=== PATIENT | female | born 1955 | race Caucasian/White ===

== ENCOUNTER 2017-02-12 20:53 | Inpatient (IN) | payer OTHER, MEDICARE ==
[~2017-02-12] VITALS: Ht 170.2 cm; Wt 58.0 kg
[~2017-02-12 20:53] MED LIST: ESTR.625 PO; ZOCO40TA PO
[2017-02-12 20:57] VITALS: BP 163/89; PULSE 98; RESP 16; TEMP 98.3; O2SAT 97
[2017-02-12 21:12] VITALS: BP_SYST 139; BP_SYST 142; BP_DIAS 76; BP_DIAS 80; PULSE 88; RESP 18; O2SAT 96
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
[2017-02-12] MEDS ORDERED: ASPIRIN 81 MG CHEW TAB PO ONE (21:15)
[2017-02-12] MEDS ORDERED: ZOCO40TA PO (21:15)
[2017-02-12] MEDS ORDERED: ESTR1TAB PO (21:15)
[2017-02-12] MEDS ORDERED: IBUP800T23 PO (21:15)
[2017-02-12] MEDS ORDERED: SODIUM CHLORIDE 0.9% FLUSH 10 ML FLUSH IVF PRN (21:15)
[2017-02-12] MEDS: NITROGLYCERIN 0.4 MG SL 25 TABS/BTL SL SCH ×5 (21:16→22:57)
--- NOTE | 2017-02-12 21:56 | RADRPT ---
EXAM DATE/TIME: 02/12/2017 21:34 [facility] COMPARISON: No previous studies available for comparison. INDICATIONS : Chest pain. MEDICAL HISTORY : Chronic obstructive pulmonary disease. SURGICAL HISTORY : None. ENCOUNTER: Initial ACUITY: 1 day PAIN SCORE: 7/10 LOCATION: middle chest. FINDINGS: A single view of the chest demonstrates the lungs to be symmetrically aerated without evidence of mas s, infiltrate or effusion. The cardiomediastinal contours are unremarkable. Osseous structures are intact. CONCLUSION: No acute disease. Benoit Cason MD on February 12, 2017 at 21:54 Board Certified Radiologist. This report was verified electronically.
[2017-02-12 22:01] VITALS: BP 125/72; PULSE 73; RESP 20; O2SAT 97
[2017-02-12 22:13] LABS: BASOPHIL % 0.6 % (0.0-2.0); EOSINOPHIL % 0.4 % (0.0-4.0); HEMATOCRIT 41.5 % (35.0-46.0); HEMO FLAGS DIFF FINAL; LYMPH % 24.1 % (9.0-44.0); LYMPHOCYTE # 1.4 TH/MM3 (1.0-4.8); MEAN CORPUSCULAR HEMOGLOBIN 32.1 PG (27.0-34.0); MEAN CORPUSCULAR HGB CONC 35.3 % (32.0-36.0); MONO % 5.1 % (0.0-8.0); NEUT % 69.8 % (16.0-70.0); PLATELET COUNT 207 TH/MM3 (150-450); RED BLOOD COUNT 4.56 MIL/MM3 (4.00-5.30); RED CELL DISTRIBUTION WIDTH 12.8 % (11.6-17.2); WHITE BLOOD COUNT 5.7 TH/MM3 (4.0-11.0)
[2017-02-12 22:31] LABS: APTT (PATIENT) 25.1 SEC (24.3-30.1); INTERNATIONAL NORMALIZED RATIO 0.9 RATIO; PROTHROMBIN TIME - PATIENT 9.8 SEC (9.8-11.6)
[2017-02-12 22:35] LABS: ANION GAP 8 MEQ/L (5-15); BICARBONATE 23.3 MEQ/L (21.0-32.0); BLOOD UREA NITROGEN 21 MG/DL (7-18); CHLORIDE 108 MEQ/L (98-107); CREATINE KINASE 106 U/L (26-192); GLOMERULAR FILTRATION RATE 49 ML/MIN (>89); MAGNESIUM 1.8 MG/DL (1.5-2.5); SODIUM (NA) 139 MEQ/L (136-145)
[2017-02-12] MEDS ORDERED: HEPARIN SODIUM - IV 10,000 UNITS/10 ML VIAL IV ONE (22:45)
[2017-02-12] MEDS ORDERED: METOPROLOL SUCCINATE 25 MG EXTENDED RELEASE TAB PO ONE (22:45)
[2017-02-12] MEDS ORDERED: ATORVASTATIN 80 MG TAB PO ONE (22:45)
[2017-02-12] MEDS ORDERED: CLOPIDOGREL 300 MG TAB PO ONE (22:45)
[2017-02-12] MEDS ORDERED: NITROGLYCERIN 2% OINT 1 GM PACKET TOP ONE (22:45)
[2017-02-12] MEDS ORDERED: HEPARIN-D5W INJ 250 ML IV SCH (22:45)
[2017-02-12 22:48] LABS: CKMB 2.2 NG/ML (0.5-3.6)
[2017-02-12 22:52] VITALS: BP 126/67; PULSE 66; RESP 20; O2SAT 98
[2017-02-12 23:29] LABS: HEMATOCRIT 41.1 % (35.0-46.0); MEAN CELL VOLUME 91.9 FL (80.0-100.0); MEAN CORPUSCULAR HEMOGLOBIN 31.7 PG (27.0-34.0); MEAN CORPUSCULAR HGB CONC 34.5 % (32.0-36.0); PLATELET COUNT 208 TH/MM3 (150-450); RED BLOOD COUNT 4.47 MIL/MM3 (4.00-5.30); REVIEW FLAG FINAL; WHITE BLOOD COUNT 8.1 TH/MM3 (4.0-11.0)
[2017-02-12 23:39] LABS: INTERNATIONAL NORMALIZED RATIO 0.9 RATIO; PROTHROMBIN TIME - PATIENT 9.9 SEC (9.8-11.6)
--- NOTE | 2017-02-12 23:42 | PD ---
Physical Exam Date Seen by Provider: Feb 12, 2017 Time Seen by Provider: 22:30 Narrative This patient presents with chest pain which started after mowing the lawn. Chest pain was relieved by nitroglycerin. Data Data Last Documented VS Vital Signs Date Time Temp Pulse Resp B/P Pulse Ox O2 Delivery O2 Flow Rate FiO2 02/12/17 22:52 66 20 126/67 98 Room Air 02/12/17 20:57 98.3 Orders Electrocardiogram (02/12/17 21:09) Basic Metabolic Panel (Bmp) (02/12/17 21:09) Ckmb (Isoenzyme) Profile (02/12/17 21:09) Complete Blood Count With Diff (02/12/17 21:) Magnesium (Mg) (02/12/17 21:09) Prothrombin Time / Inr (Pt) (02/12/17 21:09) Act Partial Throm Time (Ptt) (02/12/17 21:09) Troponin I (02/12/17 21:09) Chest, Single Ap (02/12/17 21:09) Ecg Monitoring (02/12/17 21:09) Bilateral Bp Monitoring (02/12/17 21:09) Iv Access Insert/Monitor (02/12/17 21:09) Oximetry (02/12/17 21:09) Oxygen Administration (02/12/17 21:09) Aspirin Chew (Aspirin Chew) (02/12/17 21:15) Sodium Chloride 0.9% Flush (Ns Flush) (02/12/17 21:15) Nitroglycerin Sl (Nitrostat Sl) (02/12/17 21:15) CKMB (02/12/17 21:15) CKMB% (02/12/17 21:15) Clopidogrel (Plavix) (02/12/17 22:45) Atorvastatin (Lipitor) (02/12/17 22:45) Heparin Infusion HERMAN.Q1H (02/12/17 22:44) Heparin Inj (Heparin Inj) (02/12/17 22:45) Heparin Inj (Heparin Inj) (02/13/17 04:45) Heparin Inj (Heparin Inj) (02/13/17 04:45) Heparin-D5w Inj (Heparin-D5w Inj) (02/12/17 22:45) Act Partial Throm Time (Ptt) (02/12/17 22:44) Prothrombin Time / Inr (Pt) (02/12/17 22:44) Cbc No Diff, Includes Plts (02/12/17 22:44) Cbc No Diff, Includes Plts (02/15/17 06:00) Act Partial Throm Time (Ptt) (02/13/17 05:44) Occult Blood (Hemoccult) Stool (02/12/17 22:44) Metoprolol Succinate Er (Toprol Xl) (02/12/17 22:45) Nitroglycerin 2% Oint (Nitroglycerin 2% (02/12/17 22:45) Consult Cardiology (02/12/17 ) (Hub Use Only)Inp Phy Cons/Ref (02/12/17 ) Morphine Inj (Morphine Inj) (02/12/17 23:45) Electrocardiogram (02/12/17 ) Admit Order (Ed Use Only) (02/12/17 23:56) Labs Laboratory Tests Test 02/12/17 02/12/17 21:15 23:10 White Blood Count 5.7 TH/MM3 8.1 TH/MM3 Red Blood Count 4.56 MIL/MM3 4.47 MIL/MM3 Hemoglobin 14.7 GM/DL 14.2 GM/DL Hematocrit 41.5 % 41.1 % Mean Corpuscular Volume 91.0 FL 91.9 FL Mean Corpuscular Hemoglobin 32.1 PG 31.7 PG Mean Corpuscular Hemoglobin 35.3 % 34.5 % Concent Red Cell Distribution Width 12.8 % 13.0 % Platelet Count 207 TH/MM3 208 TH/MM3 Mean Platelet Volume 8.0 FL 7.5 FL Neutrophils (%) (Auto) 69.8 % Lymphocytes (%) (Auto) 24.1 % Monocytes (%) (Auto) 5.1 % Eosinophils (%) (Auto) 0.4 % Basophils (%) (Auto) 0.6 % Neutrophils # (Auto) 4.0 TH/MM3 Lymphocytes # (Auto) 1.4 TH/MM3 Monocytes # (Auto) 0.3 TH/MM3 Eosinophils # (Auto) 0.0 TH/MM3 Basophils # (Auto) 0.0 TH/MM3 CBC Comment DIFF FINAL Differential Comment Prothrombin Time 9.8 SEC 9.9 SEC Prothromb Time International 0.9 RATIO 0.9 RATIO Ratio Activated Partial 25.1 SEC 24.0 SEC Thromboplast Time Sodium Level 139 MEQ/L Potassium Level 4.0 MEQ/L Chloride Level 108 MEQ/L Carbon Dioxide Level 23.3 MEQ/L Anion Gap 8 MEQ/L Blood Urea Nitrogen 21 MG/DL Creatinine 1.12 MG/DL Estimat Glomerular Filtration 49 ML/MIN Rate Random Glucose 144 MG/DL Calcium Level 9.7 MG/DL Magnesium Level 1.8 MG/DL Total Creatine Kinase 106 U/L Creatine Kinase MB 2.2 NG/ML Troponin I 0.50 NG/ML [facility] Supervised Visit with MAXI: Yes Interpretation(s) EKG #3 continues to show diffuse nonspecific ST segment elevation. Differential Diagnosis Differential diagnosis of chest pain includes but is not limited to musculoskeletal pain, pulmonary embolism, acute coronary syndrome, pneumonia, pleurisy Narrative Course I, Dr. Rios, have reviewed the advance practice practitioner's documentation and am in agreement, met with the patient face to face, made the diagnosis, and the medical decision making was done by me. *My assessment and Findings: Patient presents with chest pain which was relieved by nitroglycerin. The chest pain started after physical exertion. The patient's risk factors for coronary artery disease include smoking, hyperlipidemia and a positive family history. Her initial troponin is 0.5. Her EKG shows diffuse minimal ST segment elevation. 11:40 PM The patient had been pain-free following her initial nitroglycerin. Nitropaste was applied after Dr. Sharp was consulted. However, she is now complaining with chest pain again. I have ordered morphine. I have asked for a repeat EKG. Critical Care Narrative Aggregate critical care time was 30 minutes. Time to perform other separately billable procedures was not included in the critical care time. My time did not include minutes spent treating any other patients simultaneously or on activities that did not directly contribute to the patient's treatment. The services I provided to this patient were to treat and/or prevent clinically significant deterioration due to NSTEMI I provided critical care services requiring my management, as noted below: Chart data review, documentation time, medication orders and management, vital sign assessments/reviewing monitor data, ordering and reviewing lab tests, ordering and interpreting/reviewing x-rays and diagnostic studies, care of the patient and discussion of the patient with the admitting physicians Physician Communication Physician Communication The patient was discussed with Dr. Sharp who requested a loading dose of Plavix, heparin, beta anatoliy, Lipitor, nitroglycerin and admission to the [facility]. has been paged admission. Diagnosis Primary Impression: NSTEMI (non-ST elevated myocardial infarction) Admitting Information Admitting Physician Requests: Admit Condition: Stable Teresa Rios MD Feb 12, 2017 23:42
[2017-02-12] MEDS ORDERED: MORPHINE SULFATE 8 MG/ML INJ IV PUSH PRN (23:45)
[2017-02-13] VITALS (26 sets, daily range): BP systolic 103–139; BP diastolic 64–76; PULSE 51–94; RESP 14–18; TEMP 97.7–98.3; O2SAT 96–98
[2017-02-13] MEDS ORDERED: SODIUM CHLORIDE 0.9% FLUSH 10 ML FLUSH IV FLUSH PRN (00:15)
[2017-02-13] MEDS ORDERED: NALOXONE HCL 0.4 MG/ML AMP IV PRN (00:15)
[2017-02-13] MEDS ORDERED: NITROGLYCERIN 0.4 MG SL 25 TABS/BTL SL PRN (00:15)
[2017-02-13] MEDS ORDERED: MORPHINE SULFATE 8 MG/ML INJ IV PUSH ONE (00:45)
[2017-02-13] MEDS ORDERED: HEPARIN SODIUM - IV 10,000 UNITS/10 ML VIAL IV PRN ×2 (04:45)
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
[2017-02-13] MEDS: SODIUM CHLOR 0.9% 1000 ML INJ 1,000 ML IV SCH ×2 (05:52→19:58)
[2017-02-13 06:20] LABS: APTT (PATIENT) 68.3 SEC (24.3-30.1)
[2017-02-13] MEDS: ACETAMINOPHEN 325 MG TAB PO PRN ×2 (08:17→21:27)
[2017-02-13] MEDS ORDERED: IOHEXOL 350 MG/ML 100 ML BTL (for Cath Lab) OTHER ONE (08:27)
[2017-02-13] MEDS: SODIUM CHLORIDE 0.9% FLUSH 10 ML FLUSH IV FLUSH SCH ×2 (09:00→21:00)
[2017-02-13 11:35] LABS: APTT (PATIENT) 67.6 SEC (24.3-30.1)
--- NOTE | 2017-02-13 11:46 | HHI.PR ---
Subjective Remarks Had some chest pain early this morning. No shortness of breath. Consent to going to cardiac catheterization today. Objective Vitals Vital Signs Date Time Temp Pulse Resp B/P Pulse Ox O2 Delivery O2 Flow Rate FiO2 02/13/17 11:00 98.0 62 16 103/64 97 02/13/17 10:32 63 02/13/17 09:00 55 02/13/17 08:00 58 02/13/17 07:00 61 02/13/17 07:00 98.0 58 14 139/70 97 02/13/17 06:00 59 02/13/17 05:48 97.8 61 14 107/66 98 02/13/17 05:00 60 02/13/17 04:00 59 02/13/17 03:20 60 02/13/17 02:19 62 02/13/17 01:43 97.7 94 16 123/70 97 02/13/17 01:23 16 02/13/17 00:04 18 02/12/17 22:52 66 20 126/67 98 Room Air 02/12/17 22:01 73 20 125/72 97 Room Air 02/12/17 21:12 139/80 142/76 02/12/17 21:12 18 96 Room Air 02/12/17 21:12 88 02/12/17 21:12 96 Room Air 02/12/17 21:10 80 16 98 Room Air 02/12/17 20:57 98.3 98 16 163/89 97 Room Air I/O 02/12/17 02/12/17 02/12/17 02/13/17 02/13/17 02/13/17 07:00 15:00 23:00 07:00 15:00 23:00 Intake Total 48 ml Balance 48 ml Intake Oral 0 ml IV Total 48 ml # Voids 2 # Bowel Movements 0 Result Diagram: 02/12/17 2310 02/12/178 Other Results Item Value Date Time Troponin I 2.02 NG/ML *H # 02/13/17 0427 Total Creatine Kinase 115 U/L 02/13/17 042 Objective Remarks GENERAL: This is a well-nourished, well-developed patient, in no apparent distress. CARDIOVASCULAR: Regular rate and rhythm RESPIRATORY: Clear to auscultation. Breath sounds equal bilaterally. No wheezes , rales, or rhonchi. GASTROINTESTINAL: Abdomen soft, non-tender, nondistended. Normal active bowel sounds MUSCULOSKELETAL: Extremities without clubbing, cyanosis, or edema. NEURO: Alert & Oriented x4 to person, place, time, situation. Moves all ext x4 Procedures 02/13 cardiac catheterization A/P Problem List: (1) NSTEMI (non-ST elevated myocardial infarction) ICD Code: I21.4 Status: Acute Assessment and Plan NSTEMIsecond troponin increased from 0.5 to over [address]. Cardiology consultation [address] and patient scheduled for cardiac catheterization today. Continue with heparin infusioncontinue with aspirin, beta blockers tolerated, statin Nonspecific abdomen and chest pain in a patient with prior IVC filter prong migration requiring removal - Patient has 7 additional prongs from IVC filter remaining I will wait further evaluation with CT abdomen and pelvis and CT chest with IV contrast. Congenital unilateral kidney - BUN 21, creatinine 1.12, estimated GFR 49 - worsened when compared to 2007 labs but have nothing more recent than these to compare to IV fluid hydration and monitor closely after catheterization and IV contrast, avoid nephrotoxins. DVT prophylaxisheparin infusion Hayley Foster MD Feb 13, 2017 11:46
--- NOTE | 2017-02-13 12:44 | EKG ---
Date Performed: 02/13/2017 Time Performed: 04:21:18 PTAGE: 62 years EKG: Sinus bradycardia Inferior ST elevation, CONSIDER ACUTE INFARCT Abnormal ECG PREVIOUS TRACING : 02/12/2017 23.47 DOCTOR: Christiano Scott Interpretating Date/Time 02/13/2017 12:42:31
--- NOTE | 2017-02-13 12:46 | EKG ---
Date Performed: 02/12/2017 Time Performed: 23:47:22 PTAGE: 62 years EKG: SINUS BRADYCARDIA EARLY REPOLARIZATION BORDERLINE ECG PREVIOUS TRACING : 02/12/2017 21.16 DOCTOR: Christiano Scott Interpretating Date/Time 02/13/2017 12:44:26
--- NOTE | 2017-02-13 12:50 | EKG ---
Date Performed: 02/12/2017 Time Performed: 21:49:51 PTAGE: 62 years EKG: Sinus rhythm NORMAL ECG NO PREVIOUS TRACING DOCTOR: Christiano Scott Interpretating Date/Time 02/13/2017 12:46:58
--- NOTE | 2017-02-13 12:50 | EKG ---
Date Performed: 02/12/2017 Time Performed: 21:16:33 PTAGE: 62 years EKG: Sinus rhythm POSSIBLE LEFT ATRIAL ENLARGEMENT BORDERLINE ECG PREVIOUS TRACING : 12/29/2006 00.25 DOCTOR: Christiano Scott Interpretating Date/Time 02/13/2017 12:47:04
[2017-02-13 13:00] LABS: ALT (GPT) 18 U/L (10-53); AST (GOT) 22 U/L (15-37)
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
--- NOTE | 2017-02-13 14:58 | EKG ---
Date Performed: 02/13/2017 Time Performed: 08:23:36 PTAGE: 62 years EKG: Sinus bradycardia. Normal ECG except for rate PREVIOUS TRACING : 02/13/2017 04.21 No significant change. DOCTOR: Brian Martell Interpretating Date/Time 02/13/2017 14:56:49
[2017-02-13] MEDS ORDERED: HEPARIN-NS/PF INJ 500 ML ONE (17:23)
[2017-02-13] MEDS ORDERED: MIDAZOLAM HCL 2 MG/2 ML VIAL ONE (17:23)
[2017-02-13] MEDS ORDERED: HEPARIN SODIUM - IV 10,000 UNITS/10 ML VIAL ONE (17:24)
[2017-02-13 18:13] LABS: HEMOGLOBIN A1a 1.1 %; HEMOGLOBIN Ao 85.3 %; HEMOGLOBIN F 0.8 %; HEMOGLOBIN P3 3.7 %
--- NOTE | 2017-02-13 18:21 | CATHPROC ---
[email or web address] HIS Report Study Information Study Number Admission Scheduled Start Study Start [id number] Feb 12 2017 11:58PM 02/13/2017 Feb 13 2017 5:17PM [place] Service Cardiac Catheterization Admit Source Facility Department Emergency department [facility] - Creative Services Producer Physician and Clinical Staff Initial Selvin Mckeon Feeder Operator Automatic Haydee Kenny,IFEOMA Recorder Zina Perez,(R) (BS) Scrub Jose Eduardo Horton RCIS(BS) Procedures Performed Procedure Location (Site) Vessel Name Angiogram LV LV Ventricle Coronary Angiograms RCA Right Coronary L Heart Cath Equipment Time Supervisor Slate Splitting Description Size Mfg Part Number Used/Scraped TRANSDUCER, TRUWAVE [id number] 17:19 ROJAS BRAR * Used W/STOCKCOCK *[id number] *[id number] *[id number] *[id number] 17:19 [employer] PACK, CCL CUSTOM * Used *[id number] 17:19 [employer] PACER PEN, SKIN DUAL W/ RULER * Used *[id number] 17:19 [employer] WIRE, 3MMJ .035 180CM 180CM Used *[id number] PROBE COVER, STERILE [id number] 17:19 [employer] MEDICAL * Used ULTRASOUND W/ GEL *[id number] 17:19 NAMIC MANIFOLD, 4 PORT * Used *[id number] 17:19 NAMIC TUBING, HIGH PRESSURE 48" 48" Used *[id number] 17:19 [employer] OMNIPAQUE, 350 MG, 150ML 150ML [id number] Used [id number] 17:19 [employer] BLANKET,WARM AIR CCL * Used *[id number] 17:19 TERUMO MEDICAL SHEATH, FR5 TERUMO (10CM) FR 5 Used *[id number] History: Current Medications Medication Dosage/Unit Route Frequency Last Date/Time Taken ASA PLAVIX HEPARIN Beta Palomo History: Allergies Allergy Reaction No Known Allergies History: Risk Factors Family History of Hypertension Dyslipidemia Previous [place] Previous Heart Failure Premature CAD No Yes No No No Prior Valve Prior PCI Prior CABG Surgery No No No Cerebrovascular Peripheral Artery Chronic Lung On Dialysis Disease Disease Disease No No No No History: Symptoms/Diagnosis Selection Items Chest pain History: Stress Tests Stress or Imaging Studies Performed No History: Other Current Smoker Method Packs a Day Years Used Pack Years No Cigarettes 1 40 40 Labs Hgb (g/dl) RBC (MIL/MM3) WBC (l/cumm) Platelets (thousands) 11.60-17.00 4.00-5.90 4.00-11.00 150.00-450.00 14.2 4.4 8.1 208 Glucose (mg/dl) BUN (mg/dl) Creatinine (mg/dl) BUN:Creatinine (1:x) 74.00-106.00 7.00-18.00 0.50-1.30 10.00-20.00 144 21 1.1 19.1 Na (meq/l) 136.00-145.00 139 INR (PTT:PT) 0.90-1.10 0.9 Troponin I (ng/ml) CPK-MB (ng/ML) 0.02-0.05 0.50-3.60 1.46 2.2 Medication Medication Total Dose (Bolus/Oral) Medication Total Dosage/Unit 1% XYLOCAINE 20 mL FENTANYL 100 mcg VERSED 4 mg Medications (Bolus/Oral) Medication Time Given Dosage/Unit Administered By Reason VERSED 02/13/2017 5:52:27 PM 2 mg MeseretcheAnalisaHaydee 2 mg VERSED given in lab by Haydee Kenny RN in Right Forearm via Peripheral IV. FENTANYL 02/13/2017 5:53:47 PM 50 mcg Aleksandra Kennyt 50 mcg FENTANYL given in lab by Haydee Kenny RN in Right Forearm via Peripheral IV. 1% XYLOCAINE 02/13/2017 5:57:57 PM 20 mL Selvin Sharp 20 mL 1% XYLOCAINE given in lab by Selvin Sharp in Right Groin via Subcutaneous. VERSED 02/13/2017 5:58:35 PM 2 mg MeseretcheAnalisaHaydee 2 mg VERSED given in lab by Haydee Kenny RN in Right Forearm via Peripheral IV. FENTANYL 02/13/2017 5:58:40 PM 50 mcg Analisa Kennyaret 50 mcg FENTANYL given in lab by Haydee Kenny RN in Right Forearm via Peripheral IV. Medication (Drip) Medication Time Given Dosage/Unit Concentration/Unit Diluent (ml) Solution HEPARIN DRIP STOPPED 02/13/2017 5:25:11 PM 0 units/hr 0 0 units/hr HEPARIN DRIP STOPPED given by Haydee Kenny RN in Right Forearm via Peripheral IV. Pum p/Drip Flow = 0 ml/hr using [Solution Name]. IV Solutions 02/13/2017 5:28:31 PM 0 mL (IV) 1000 NaCl .9 Patient arrived on IV Solutions in Right Forearm via Peripheral IV. Pump/Drip Flow = 20 ml/hr using N aCl .9. Initial Case Assessment Cardiovascular HR Rhythm NIBP Chest Pain 66 reg 146/84 0 Edema Present Skin color Skin None Normal Warm Dry Circulatory - Right Pulses Dorsalis Pedis Femoral 2 2 Scale (0,1,2,3,4,d) Circulatory - Left Pulses Dorsalis Pedis Femoral 2 2 Scale (0,1,2,3,4,d) Circulatory - Lower Extremities Color Lower Right Color Lower Left Normal Normal Neurological State Oriented to time-place- Alert Moves all extremities person Respiration - General Respiration Rate SpO2 (%) (B/min) 18 99 Chronological Log Time Study Chronological Log 0 units/hr HEPARIN DRIP STOPPED given by aHydee Kenny RN in Right Forearm via Peripheral I V. Pump/Drip Flow 17:25:11 = 0 ml/hr using [Solution Name]. 17:28:11 Patient arrived via Bed. 17:28:13 Patient Name, D.O.B, / Armband Verified By R.N. 17:28:14 Consent signed by the physician and the patient and verified by the Creative Services Producer staff. 17:28:16 Pre-op and post- op instructions given; patient acknowledges understanding of instructions. 17:28:17 Verbal Stimulation=2 Physical Stimulation=2 Airway=2 Respiration=2 TOTAL=8. (0=absent, 1=li mited, 2=present) 17:28:20 Presedation assessment performed by Creative Services Producer RN. 17:28:23 Patient has been NPO for More than 6Hrs. 17:28:26 Skin Breakdown none per pt 17:28:27 Patient Warmer Placed on the Table. 17:28:29 Chava Prominences Protected 17:28:30 A # 20 IV was noted in the Forearm (right). Grade = 0 17:28:31 Patient arrived on IV Solutions in Right Forearm via Peripheral IV. Pump/Drip Flow = 20 ml/ hr using NaCl .9. 17:28:32 History and physical on the chart or being dictated. Assessment: Initial Case, HR=66 BPM, Rhythm=reg, QDXF=620/84 mmhg, Chest Pain=0, Edema=None, Co cruz=Normal, Skin = Warm, Dry Right Pulses: Robert Ped=2, Femoral=2 Left Pulses: Robert Ped=2, Femoral=2 17:28:34 Lower Right Extremities: Color=Normal Lower Left Extremities: Color=Normal Neurological: State=Alert, Ox3, SERNA Respiration: Resp=18 B/min, SpO2=99 % Vitals capture started with the following parameters, Patient=Adult, Interval=5 min, Initial Pr rzlzzc=591 mmHg, 17:31:59 Deflation Rate=5 mmHg, Cuff placed on Right Arm 17:33:00 HR=59 bpm, YJRC=161/84 mmhg, SpO2=98.0 %, Resp=14 B/min, Pain=0, Maribel=10, Beth=2 17:33:45 Bilateral groins prepped with 2% chlorhexidine, and with a 3 min. waiting time. 17:35:12 Reference ECG taken 17:37:35 HR=59 bpm, OTKV=780/82 mmhg, SpO2=98.0 %, Resp=19 B/min, Pain=0, Maribel=10, Beth=2 17:38:25 MD paged 17:41:58 Pressure channel 1 zeroed. 17:42:34 HR=54 bpm, SIQN=494/77 mmhg, SpO2=99.0 %, Resp=15 B/min, Pain=0, Maribel=10, Beth=2 17:47:33 HR=54 bpm, PHED=121/76 mmhg, SpO2=98.0 %, Resp=14 B/min, Pain=0, Maribel=10, Beth=2 17:51:06 MD arrived. 17:52:27 2 mg VERSED given in lab by Haydee Kenny, IFEOMA in Right Forearm via Peripheral IV. 17:52:34 HR=56 bpm, SJSY=875/79 mmhg, SpO2=98.0 %, Resp=15 B/min, Pain=0, Maribel=10, Beth=2 17:53:47 50 mcg FENTANYL given in lab by Haydee Kenny, RN in Right Forearm via Peripheral IV. Time Out. Correct patient, correct procedure,correct physician, power injector loaded with cont rast with surgical team 17:57:05 present. Time Out Concurred by , individual staff in procedure 17:57:25 Case Start 17:57:37 HR=58 bpm, LNZC=790/69 mmhg, SpO2=98.0 %, Resp=10 B/min, Pain=0, Maribel=10, Beth=2 17:57:57 20 mL 1% XYLOCAINE given in lab by Selvin Sharp in Right Groin via Subcutaneous. 17:58:35 2 mg VERSED given in lab by Haydee Kenny, RN in Right Forearm via Peripheral IV. 17:58:40 50 mcg FENTANYL given in lab by Haydee Kenny, IFEOMA in Right Forearm via Peripheral IV. 17:59:13 Access site was Right Femoral Artery using ultrasound 17:59:28 A SHEATH, FR5 TERUMO (10CM) FR 5 was advanced into the Fem Art (right) using the Percutaneo us technique. 18:00:13 Activated Clotting Time Drawn A PIGTAIL ANG. INFINITI CATHETER FR 5 was advanced over a wire. OMNIPAQUE, 350 MG, 150ML 150ML was used 18:00:32 for injections. Recorded Pressure: LV, HR=56, Condition=Condition 1 18:01:27 (Left Ventricle) LV 114/9/15 18:02:13 The LV was injected at 10 cc/sec for a total of 30. OMNIPAQUE, 350 MG, 150ML 150ML used. 18:02:32 HR=55 bpm, TJWF=297/66 mmhg, SpO2=99.0 %, Resp=8 B/min, Pain=0, Maribel=10, Beth=2 18:03:17 ACT (Normal Range 90-180) = 168 Recorded Pressure: LV, Ao, HR=52, Condition=Condition 1 18:03:27 (Left Ventricle) LV 120/14/21, (Aorta) Ao 123/70/94 18:03:56 Catheter was removed A JL 4.0 INFINITI CATHETER FR 5 was advanced over a wire. OMNIPAQUE, 350 MG, 150ML 150ML was us ed for 18:04:18 injections. 18:05:24 The RCA was injected and visualized at various angles. OMNIPAQUE, 350 MG, 150ML 150ML used . Recorded Pressure: Ao, HR=61, Condition=Condition 1 18:05:29 (Aorta) Ao 115/62/84 18:07:33 HR=62 bpm, BMRD=767/69 mmhg, SpO2=99.0 %, Resp=13 B/min, Pain=0, Maribel=10, Beth=2 18:08:09 Catheter was removed A AR MOD INFINITI CATHETER FR 5 was advanced over a wire. OMNIPAQUE, 350 MG, 150ML 150ML was u sed for 18:09:04 injections. 18:09:49 The RCA was injected and visualized at various angles. OMNIPAQUE, 350 MG, 150ML 150ML use d. 18:10:58 Catheter was removed 18:11:11 Case End 18:12:36 HR=72 bpm, TJIL=046/67 mmhg, SmE5=165.0 %, Resp=14 B/min, Pain=0, Maribel=10, Beth=2 18:12:48 Catheter(s) removed without difficulty 18:13:49 Sterile dressing applied to site 18:14:06 No case complications noted. 18:14:32 Cine recording checked. 18:14:38 Bedside Report will be given. 18:14:42 A Left Heart Cath was performed. 18:17:33 HR=61 bpm, OUJP=186/74 mmhg, SpO2=99.0 %, Resp=10 B/min, Pain=0, Maribel=10, Beth=2 18:17:33 CIC called. Advised a-line needed. 18:19:23 Vitals capture stopped. 18:21:53 Patient moved to [facility] End Study - Contrast Media Used In Study Contrast Total Opened (mL) Total Used (mL) Total Wasted (mL) Omnipaque 100 100 0 End Study - Maximum Contrast Load Max Contrast Load (mL) 256.8 End Study - Radiation Exposure Fluoro Time (minutes) 1.3 End Study - Patient Disposition Complications Transferred To Interventional Outcome No Telemetry Bed No attempt made
[2017-02-13] MEDS ORDERED: SODIUM CHLOR 0.9% 1000 ML INJ 500 ML IV SCH (20:08)
[2017-02-13] MEDS: METOPROLOL TARTRATE 25 MG TAB PO SCH (20:51)
[2017-02-13 21:45] LABS: HDL CHOLESTEROL 54.6 MG/DL (40.0-60.0)
[2017-02-14] VITALS (18 sets, daily range): BP systolic 98–128; BP diastolic 55–77; PULSE 53–69; RESP 16–18; TEMP 98.1–98.3; O2SAT 95–97
[2017-02-14] MEDS ORDERED: EPINEPHrine HCL (1:10,000) 1 MG/10 ML SYRINGE ONE (00:22)
--- NOTE | 2017-02-14 01:18 | RADRPT ---
EXAM DATE/TIME: 02/14/2017 00:31 [facility] COMPARISON: No previous studies available for comparison. INDICATIONS : Diffuse abdominal pain. Pain is similar to time when an IVC filter broke. Evaluate for foreign body. ORAL CONTRAST: No oral contrast ingested. RADIATION DOSE: 6.52 CTDIvol (mGy) ; Combined studies - Thorax/Abdomen/Pelvis MEDICAL HISTORY : None SURGICAL HISTORY : Hysterectomy. Duodenum and vena cava repaired. ENCOUNTER: Initial ACUITY: 2 days PAIN SCALE: 5/10 LOCATION: All quadrants. TECHNIQUE: Volumetric scanning of the abdomen and pelvis was performed. Using automated exposure control and ad justment of the mA and/or kV according to patient size, radiation dose was kept as low as reasonably achievable to obtain optimal diagnostic quality images. DICOM format image data is available electro nically for review and comparison. FINDINGS: LOWER LUNGS: The visualized lower lungs are clear. LIVER: Homogeneous density without lesion. There is no dilation of the biliary tree. Contrast is seen in th e gallbladder. SPLEEN: Calcified granulomas in the spleen. PANCREAS: Within normal limits. KIDNEYS: Solitary left kidney. Contrast is seen within the renal collecting system and ureter. Left kidney wit hin normal limits. ADRENAL GLANDS: Within normal limits. VASCULAR: There is no aortic aneurysm. BOWEL/MESENTERY: No evidence of bowel dilatation. No free air or free fluid. Appendix not identified. ABDOMINAL WALL: Small fat-containing anterior abdominal wall hernia just left of midline measuring 1.8 cm. RETROPERITONEUM: IVC filter is in place. No other metallic foreign body identified. BLADDER: Contrast is seen in the bladder. REPRODUCTIVE: Status post hysterectomy. INGUINAL: There is no lymphadenopathy or hernia. MUSCULOSKELETAL: Left femoral internal fixation hardware partially visualized. CONCLUSION: 1. IVC filter is in place. The distal arms of the filter extend beyond the pool of the IVC but there is no evidence of hematoma. No evidence of filter displacement. The adjacent duodenum is within norm al limits. 2. No acute findings in the abdomen and pelvis. 3. Solitary left kidney. Fabian Juarez MD on February 14, 2017 at 1:07 Board Certified Radiologist. This report was verified electronically.
--- NOTE | 2017-02-14 01:21 | RADRPT ---
EXAM DATE/TIME: 02/14/2017 00:31 [facility] COMPARISON: No previous studies available for comparison. INDICATIONS : Chest pain. Pain is similar to time when an IVC filter broke. Evaluate for foreign body. RADIATION DOSE: 6.52 CTDIvol (mGy) ; Combined studies - Thorax/Abdomen/Pelvis MEDICAL HISTORY : None SURGICAL HISTORY : Hysterectomy. Vena cava repaired. ENCOUNTER: Initial ACUITY: 2 days PAIN SCALE: 5/10 LOCATION: Bilateral chest TECHNIQUE: Volumetric scanning of the chest was performed. Using automated exposure control and adjustment of t he mA and/or kV according to patient size, radiation dose was kept as low as reasonably achievable to obtain optimal diagnostic quality images. DICOM format image data is available electronically for r eview and comparison. Follow-up recommendations for incidentally detected pulmonary nodules are based at a minimum on nodul e size and patient risk factors according to Fleischner Society Guidelines. FINDINGS: LUNGS: Mild pulmonary emphysema bilaterally. Calcified granuloma in the right middle lobe. PLEURAE: There is no pleural thickening or pleural effusion. MEDIASTINUM: Calcified lymph nodes in the subcarinal and right hilar regions. No enlarged lymph nodes. Minimal cor onary artery calcification. AXILLAE: Within normal limits. No lymphadenopathy. MUSCULOSKELETAL: Within normal limits for patient age. MISCELLANEOUS: The visualized upper abdominal organs demonstrate no acute abnormality. CONCLUSION: 1. No metallic foreign body identified. 2. Old granulomatous disease. 3. Mild pulmonary emphysema. Fabian Juarez MD on February 14, 2017 at 1:17 Board Certified Radiologist. This report was verified electronically.
[2017-02-14] MEDS: SODIUM CHLOR 0.9% 1000 ML INJ 1,000 ML IV SCH (05:20)
[2017-02-14 06:03] LABS: APTT (PATIENT) 26.1 SEC (24.3-30.1)
[2017-02-14 06:22] LABS: HDL CHOLESTEROL 44.4 MG/DL (40.0-60.0)
[2017-02-14] MEDS: ACETAMINOPHEN 325 MG TAB PO PRN (07:35)
[2017-02-14] MEDS ORDERED: ASPIRIN 325 MG TAB PO SCH (09:00)
[2017-02-14] MEDS: SODIUM CHLORIDE 0.9% FLUSH 10 ML FLUSH IV FLUSH SCH (09:00)
[2017-02-14] MEDS ORDERED: ASPIRIN EC 81 MG TABEC PO SCH (09:00)
[2017-02-14] MEDS ORDERED: ATORVASTATIN 20 MG TAB PO SCH (09:00)
[2017-02-14] MEDS: METOPROLOL TARTRATE 25 MG TAB PO SCH (09:47)
--- NOTE | 2017-02-14 15:59 | HHI.DS ---
Discharge Summary Admission Date Feb 12, 2017 at 23:58 Discharge Date: Feb 14, 2017 Admitting Diagnosis NSTEMI (1) NSTEMI (non-ST elevated myocardial infarction) ICD Code: I21.4 Procedures 02/13 cardiac catheterization Brief History - From Admission Obtained from admitting physician's history and physical - 62 [place] presents with chest pressure radiating to her jaw and neck accompanied by shortness of breath after she finished mowing her "small" yard - symptoms severe. She denies nausea, vomiting, diarrhea, dysuria, or hematuria. She also has complaints of nonspecific abdominal and chest pains intermittently that are similar to the pains she had from IVC filter prong migration CBC/BMP: 02/12/17 2310 02/12/17 2115 Significant Findings Laboratory Tests Test 02/12/17 02/12/17 02/13/17 02/13/17 21:15 23:10 04:27 10:40 Chloride Level 108 MEQ/L (98-107) Blood Urea Nitrogen 21 MG/DL (7-18) Creatinine 1.12 MG/DL (0.50-1.00) Estimat Glomerular Filtration 49 ML/MIN (>89) Rate Random Glucose 144 MG/DL (74-106) Troponin I 0.50 NG/ML 2.02 NG/ML (0.02-0.05) (0.02-0.05) Activated Partial 24.0 SEC 68.3 SEC 67.6 SEC Thromboplast Time (24.3-30.1) (24.3-30.1) (24.3-30.1) Test 02/13/17 02/13/17 02/14/17 11:33 20:20 04:17 Troponin I 1.46 NG/ML (0.02-0.05) Triglycerides Level 250 MG/DL 273 MG/DL (42-150) (42-150) Imaging Last Impressions Chest CT 02/13/17 0000 Signed Impressions: Service Date/Time: Tuesday, February 14, 2017 00:31 - CONCLUSION: 1. No metallic foreign body identified. 2. Old granulomatous disease. 3. Mild pulmonary emphysema. Fabian R Juarez, MD Abdomen/Pelvis CT 02/13/17 0000 Signed Impressions: Service Date/Time: Tuesday, February 14, 2017 00:31 - CONCLUSION: 1. IVC filter is in place. The distal arms of the filter extend beyond the pool of the IVC but there is no evidence of hematoma. No evidence of filter displacement. The adjacent duodenum is within normal limits. 2. No acute findings in the abdomen and pelvis. 3. Solitary left kidney. Fabian Juarez MD Chest X-Ray 02/12/179 Signed Impressions: Service Date/Time: Sunday, February 12, 2017 21:34 - CONCLUSION: No acute disease. Benoit Cason MD PE at Discharge GENERAL: This is a well-nourished, well-developed patient, in no apparent distress. CARDIOVASCULAR: Regular rate and rhythm RESPIRATORY: Clear to auscultation. Breath sounds equal bilaterally. No wheezes , rales, or rhonchi. GASTROINTESTINAL: Abdomen soft, non-tender, nondistended. Normal active bowel sounds MUSCULOSKELETAL: Extremities without clubbing, cyanosis, or edema. NEURO: Alert & Oriented x4 to person, place, time, situation. Moves all ext x4 Pt update on day of discharge No further chest pain, want to go home. Hospital Course 62-year-old white female was admitted for chest pain elevated troponin I with presumed non-ST elevation myocardial infarction. She was seen by kelly machine operator Dr. Gan for perform a cardiac catheterization with findings of no significant coronary disease. Due to her history of previous IVC filter a CT of the chest along with CT of the abdomen pelvis was obtained which show no abnormality. IVC filter still in place. patient had no further chest pain or the hospital physician and at this time is ready to be discharged home with continued follow-up and further evaluation as outpatient. Pt Condition on Discharge: Good Discharge Disposition: Discharge Home Discharge Time: <= 30 minutes Discharge Instructions DIET: Follow Instructions for: Heart Healthy Diet Activities you can perform: Regular-No Restrictions Follow up Referrals: PCP Follow-up Continued Medications: Estradiol (Estradiol) 1 Mg Tab 1 MG PO DAILY Estrogen Supplements #30 Ref 0 TAB Ibuprofen (Ibuprofen) 800 Mg Tab 800 MG PO Q8H PRN Pain/Inflammation #60 Ref 0 TAB Simvastatin (Zocor) 40 Mg Tab 40 MG PO DAILY Cholesterol Management #30 Ref 0 TAB Kristin,Hayley MD Feb 14, 2017 15:59
--- NOTE | 2017-02-14 16:01 | PD.CARD.PN ---
Subjective Subjective Remarks No CP or SOB, feels better Objective Medications Current Medications Medications (Trade) Dose Ordered Sig/Huma Route Start Time Stop Time Status Last Admin (Heparin Inj) 5,000 units UNSCH PRN IV 02/13/17 04:45 Heparin Sodium (Porcine) 2500 units 2,500 units UNSCH PRN IV 02/13/17 04:45 (Heparin-D5W Inj) 250 ml @ 0 mls/hr TITRATE IV 02/12/17 22:45 02/12/17 23:12 (NS Flush) 2 ml UNSCH PRN IV FLUSH 02/13/17 00:15 (NS Flush) 2 ml BID IV FLUSH 02/13/17 09:00 02/14/17 09:00 (Narcan Inj) 0.4 mg UNSCH PRN IV 02/13/17 00:15 Nitroglycerin 0.4 mg 0.4 mg Q5M PRN SL 02/13/17 00:15 (NS 1000 ml Inj) 1,000 ml @ 84 mls/hr [id number] IV 02/13/17 05:30 02/13/17 19:58 (Tylenol) 650 mg Q4H PRN PO 02/13/17 06:15 02/14/17 07:35 (Lipitor) 20 mg DAILY PO 02/14/17 09:00 (Lopressor) 12.5 mg Q12HR PO 02/13/17 21:00 02/14/17 09:47 (Ecotrin Ec) 81 mg DAILY PO 02/14/17 09:00 02/14/17 09:48 Vital Signs / I&O Vital Signs Date Time Temp Pulse Resp B/P Pulse Ox O2 Delivery O2 Flow Rate FiO2 02/14/17 14:00 68 02/14/17 13:00 62 02/14/17 12:00 64 02/14/17 11:00 98.3 67 18 128/77 96 02/14/17 11:00 68 02/14/17 10:00 69 02/14/17 09:00 65 02/14/17 08:00 69 02/14/17 06:00 54 02/14/17 05:00 57 02/14/17 04:00 67 02/14/17 03:52 98.1 55 16 98/55 97 02/14/17 03:00 55 02/14/17 02:00 57 02/14/17 01:00 56 02/14/17 00:00 98.3 53 16 124/67 95 02/14/17 00:00 58 02/13/17 23:00 52 02/13/17 22:00 52 02/13/17 21:00 56 02/13/17 20:00 58 02/13/17 19:30 98.1 51 16 139/76 98 02/13/17 18:54 66 02/13/17 17:33 60 02/13/17 16:18 63 I/O 02/13/17 02/13/17 02/13/17 02/14/17 02/14/17 02/14/17 06:59 14:59 22:59 06:59 14:59 22:59 Intake Total 48 ml 1600 ml 1260 ml Output Total 850 ml Balance 48 ml 1600 ml 410 ml Intake Oral 0 ml 500 ml 360 ml IV Total 48 ml 1100 ml 900 ml Output Urine Total 850 ml # Voids 2 5 # Bowel Movements 0 1 0 Physical Exam GENERAL: In NAD SKIN: Warm and dry. HEAD: Normocephalic. EYES: No scleral icterus. No injection or drainage. NECK: Supple, trachea midline. No JVD or lymphadenopathy. CARDIOVASCULAR: Regular rate and rhythm without murmurs, gallops, or rubs. RESPIRATORY: Breath sounds equal bilaterally. No accessory muscle use. GASTROINTESTINAL: Abdomen soft, non-tender, nondistended. MUSCULOSKELETAL: No cyanosis, or edema. Groin stable Laboratory Laboratory Tests Test 02/13/17 02/14/17 20:20 04:17 Triglycerides Level 250 MG/DL 273 MG/DL Cholesterol Level 150 MG/DL 141 MG/DL LDL Cholesterol 45 MG/DL 42 MG/DL HDL Cholesterol 54.6 MG/DL 44.4 MG/DL Cholesterol/HDL Ratio 2.74 RATIO 3.17 RATIO Activated Partial 26.1 SEC Thromboplast Time Imaging Last Impressions Chest CT 02/13/17 0000 Signed Impressions: Service Date/Time: Tuesday, February 14, 2017 00:31 - CONCLUSION: 1. No metallic foreign body identified. 2. Old granulomatous disease. 3. Mild pulmonary emphysema. Fabian Juarez MD Abdomen/Pelvis CT 02/13/17 0000 Signed Impressions: Service Date/Time: Tuesday, February 14, 2017 00:31 - CONCLUSION: 1. IVC filter is in place. The distal arms of the filter extend beyond the pool of the IVC but there is no evidence of hematoma. No evidence of filter displacement. The adjacent duodenum is within normal limits. 2. No acute findings in the abdomen and pelvis. 3. Solitary left kidney. Fabian Juarez MD Chest X-Ray 02/12/172108 Signed Impressions: Service Date/Time: Sunday, February 12, 2017 21:34 - CONCLUSION: No acute disease. Benoit Cason MD Assessment and Plan Problem List: (1) NSTEMI (non-ST elevated myocardial infarction) (2) Smoking (3) Presence of inferior vena cava filter Assessment and Plan Cath with patent cors and small inferoapical WMA. No recurrent cardiac symptoms. Continue tx with ASA, beta anatoliy and statin. DC home. Selvin Sharp MD Feb 14, 2017 16:00
--- NOTE | 2017-02-15 20:37 | MA ---
cc: SELVIN SHARP MD DATE 02/15/17 INDICATION [id number] myocardial function, class IV angina. PROCEDURE PERFORMED 1. Retrograde heart catheterization with left ventriculography and selective coronary angiography. 2. Moderate sedation. ACCESS SITE Right femoral artery. EQUIPMENT USED 5-Tanzanian pigtail catheter, 5-Tanzanian JL4 and AR modified coronary artery catheters. MEDICATIONS Versed IV. Fentanyl IV. CONTRAST Omnipaque 100 cc. COMPLICATIONS None. BLOOD LOSS Less than 10 cc. METHOD OF HEMOSTASIS Manual compression. RESULTS HEMODYNAMICS Heart rate 67 beats per minute, left end-diastolic pressure of 14 mmHg. Left ventricle 126/14. Aorta 126/__/84. The left ventricular ejection fraction 55%. Wall motion inferoapical hypokinesis, no mitral regurgitation. CORONARY ANGIOGRAPHY Left main coronary artery is short and proximal LAD and circumflex arteries have ____ ostia. Left anterior descending artery is patent. First diagonal patent. Second diagonal artery patent. Left circumflex artery patent. OM1 patent. OM2 small, patent. Right coronary is a dominant vessel which is patent. PDA is small, patent. PLV patent. DIAGNOSIS 1. Patent coronary arteries. 2. Overall, preserved left ventricular systolic function with inferoapical wall motion abnormalities. DISPOSITION Ms. Marquis was found to have no evidence of significant obstructive coronary artery disease. Her study to be with preserved left ventricular systolic function with inferoapical wall motion abnormality. She recently had coronary event with abnormal cardiac enzymes. She may have had maybe explained by a spasm or possible coronary embolus. She was treated for myocardial infarction. We will continue aggressive modification of cardiac risk factors. She was strongly encouraged to quit smoking. Selvin Sharp MD OQ/EO /6:20 PM /8:13 PM
== END 2017-02-14 17:13 | disposition home or self-care (01) | DRG 281 ==
LOC: NEPC 20:53 → NEDA 23:58 → HCIS 02-13 01:35
PROVIDERS: ADMIT Family Medicine; ATTEND Family Medicine
PROC: B2111ZZ Fluoroscopy of Multiple Coronary Arteries using Low Osmolar Contrast (ICD-10-PCS; 2017-02-13)
PROC: B2151ZZ Fluoroscopy of Left Heart using Low Osmolar Contrast (ICD-10-PCS; 2017-02-13)
PROC: 4A023N7 Measurement of Cardiac Sampling and Pressure, Left Heart, Percutaneous Approach (ICD-10-PCS; principal; 2017-02-13 18:45)
DX: I21.4 Non-ST elevation (NSTEMI) myocardial infarction (principal); Q60.0 Renal agenesis, unilateral; Q42.8 Congenital absence, atresia and stenosis of other parts of large intestine; E78.5 Hyperlipidemia, unspecified; I20.9 Angina pectoris, unspecified; F17.200 Nicotine dependence, unspecified, uncomplicated; Z79.899 Other long term (current) drug therapy; Z82.49 Family history of ischemic heart disease and other diseases of the circulatory system; Z85.828 Personal history of other malignant neoplasm of skin
CPT/HCPCS: 71010; 71250; 74176; 80048; 80061; 82550; 82552; 83036; 83735; 84450; 84460; 84484; 85002; 85025; 85027; 85610; 85730; 93005; 93458; 96365; 96375; C1769; C1893; J0171; J1644; J2250; J2270; J3010; J7030; Q9967

== ENCOUNTER → 2017-09-17 | Day surgery (SDC) | payer OTHER ==
[~2017-09-17] VITALS: Ht 160 cm; Wt 55.0 kg
[~2017-09-17] MED LIST changes: +ACETAMINOPHEN 1000 MG/100 ML 100 ML IV ONE; +ALBUAER3 INH; +ASPI81TA23 PO; +CHLORHEXIDINE GLUCONATE 2 % 1 PACK (2 CLOTHS) TOPICAL PRN; +DEXAMETHASONE SOD PHOS 4 MG/ML VIAL IV ONE; +ESMOLOL HCL 100 MG/10 ML VIAL IV ONE; -ESTR.625 PO; +ESTR1TAB PO; +FLUT1INH INH; +GLYCOPYRROLATE 1 MG/5 ML SYRINGE IV PUSH ONE; +IBUP1TAB7 PO; +KETAMINE HCL 500 MG/10 ML VIAL ONE; +KETOROLAC TROMETHAMINE 30 MG/ML (IVP) VIAL IV PUSH ONE; +LACTATED RINGER'S 1000 ML IV PRN; +LIDOCAINE 1%/EPINEPHrine 1:100,000 SOLN 30 ML VIAL ONE; +LIDOCAINE HCL 1% PF 5 ML SYRINGE OTHER ONE; +METOPROLOL TARTRATE 25 MG TAB PO PRN; +MIDAZOLAM HCL 2 MG/2 ML VIAL ONE; +NEOSTIGMINE 5 MG/5 ML SYRINGE IV PUSH ONE; +ONDANSETRON HCL 4 MG/2 ML VIAL IV PUSH ONE; +POVIDONE IODINE 5% (ANTISEPSIS KIT) 4 APPLICATIONS EACH NARE PRN; +PROPOFOL 200 MG/20 ML AMP IV ONE; +ROCURONIUM INJ 50 MG/5 ML SYRINGE IV PUSH ONE; +SODIUM CHLORID 0.9% 500 ML IV PRN; +SODIUM CHLORIDE 0.9% 20 ML VIAL ONE; +VASOPRESSIN 20 UNITS/ML VIAL ONE; +ceFAZolin 1,000 MG/NS 100 ML IV SCH
[2017-09-17 07:18] LABS: HEMATOCRIT 42.4 % (35.0-46.0); HEMOGLOBIN 14.9 GM/DL (11.6-15.3); MEAN CELL VOLUME 91.7 FL (80.0-100.0); MEAN CORPUSCULAR HEMOGLOBIN 32.1 PG (27.0-34.0); MEAN PLATELET VOLUME 7.4 FL (7.0-11.0); PLATELET COUNT 200 TH/MM3 (150-450); RED BLOOD COUNT 4.63 MIL/MM3 (4.00-5.30); RED CELL DISTRIBUTION WIDTH 12.8 % (11.6-17.2); WHITE BLOOD COUNT 5.9 TH/MM3 (4.0-11.0)
[2017-09-17 07:26] LABS: BILIRUBIN, URINE NEG (NEG); BLOOD, URINE NEG (NEG); GLUCOSE,URINE NEG (NEG); KETONE, URINE NEG (NEG); NITRITE,URINE NEG (NEG); PH, URINE 5.5 (5.0-8.5); URINE LEUKOCYTE ESTERASE NEG (NEG)
[2017-09-17 07:27] LABS: URINE COLOR YELLOW (YELLW/STRAW)
[2017-09-17 07:28] LABS: BACTERIA, URINE OCC /hpf; RBC, URINE 0-3 /hpf (0-3); SQUAMOUS EPITHELIAL CELL URINE > 8 /hpf (0-5); WBC, URINE 0-2 /hpf (0-5)
[2017-09-17 07:34] LABS: BICARBONATE 24.9 MEQ/L (21.0-32.0); CALCIUM 9.1 MG/DL (8.5-10.1)
[2017-09-17 07:38] LABS: CREATININE 0.9 MG/DL (0.50-1.00)
--- NOTE | 2017-09-17 09:11 | PD.OP ---
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 Office excision showed MAINOR 3 with (+) lateral margin on excision of lesion from right vulva. After discussing options, patient agrees to wide local excision with 1 cm margin if possible. Procedure: After induction of general anesthesia, placement in dorso-lithotomy position, and prep, The area in question is identified and an elliptical area incorporating the lesion with margin is marked. Dilute vasopressin is injected submucosally into the vagina and subcutaneously in the vulva. The lesion was tented up by grasping with an Allis clamp and the excision was done with scissors using the marking line foa the border. Cautery was used as need for hemostasis and the tissues surrounding the defect were undermined until the edges of the skin and mucosa could be united without tension. Three deeper sutures of 2-0 Monocryl were used to close the space and also the reinforce the perineal body at the level of the transverse muscle. The edges were then joined with interrupted 3-0 Vicryl sutures, about 10 in number. A small warty lesion on the left vulva was noted a cauterized. Dermabond was applied to the incision. The patient was transferred to the PACU awake and breathing on her own. Sponge, needle and instrument counts were correct. The specimen was tagged with a suture at its superior apex. Ann Sherman MD Sep 17, 2017 09:10
[2017-09-17 10:07] VITALS: BP 120/70; PULSE 65; RESP 16; TEMP 97.9; O2SAT 98
== END | disposition home or self-care (01) ==
LOC: PHSDC 06:10
PROVIDERS: ATTEND Obstetrics & Gynecology
DX: D07.1 Carcinoma in situ of vulva (principal); I25.2 Old myocardial infarction; F17.200 Nicotine dependence, unspecified, uncomplicated; Z01.818 Encounter for other preprocedural examination
CPT/HCPCS: 00906; 36415; 56620; 80048; 81001; 85027; 88305; J0131; J0690; J1100; J1885; J2250; J2405; J2710; J3010; J7120